=== PATIENT | female | born 2005 | race Hispanic/Latino ===

== ENCOUNTER 2024-01-19 18:35 | Observation (INO) | payer MEDICAID, SELFPAY ==
[2024-01-19] VITALS (21 sets, daily range): BP systolic 105–120; BP diastolic 53–75; PULSE 62–136; TEMP 37.1; O2SAT 92–100; BMI 23.8
--- NOTE | 2024-01-19 18:35 | PC.NURSE ---
Pt arrives to unit with abdominal pain.
--- NOTE | 2024-01-19 19:08 | OBADM ---
This patient, Kritsie Orozco, admitted to the OB room [facility] for observation. Patient/family oriented to hospital policies and general routines including ID bracelet, bed and alarms, visiting hours, pain management, procedures, bathroom and other care routines, personal items, smoking policy, room service/diet, and visiting hours. Patient/Family are encouraged to report perceived risks to care and to ask questions if they do not understand what they are told or what they should do.
[2024-01-19 19:53] LABS: Add Urine Microscopic? NO; Appearance Urine Clear (Clear); Bilirubin Urine Negative (Negative); Blood Urine Negative (Negative); Color Urine Yellow (Yellow); Glucose Urine UA Negative (Negative); Ketones Urine Negative (Negative); Leukocyte Esterase Ur Negative LEU/UL (Negative); Nitrate Urine Negative (Negative); Protein Urine Negative (Negative); Specific Grav Ur 1.011 (1.001-1.035); Urobilinogen Urine 0.2 mg/dL (<2.0); pH Urine 6.5 (5.0-9.0)
--- NOTE | 2024-01-19 20:17 | PC.NURSE ---
Called Dr. Zafar, update on pt, lower abdominal pain 5 out of 10, bleeding earlier today, labs, and tracing. Orders received to discharge pt with instructions to take Tylenol 1000 mg, hydrate, initiate pelvic rest, use a belly band, follow up with provider, and keep next scheduled appointment.
--- NOTE | 2024-01-19 20:38 | PC.NURSE ---
Pt discharged with instructions to take Tylenol 1000 mg, hydrate, initiate pelvic rest, use a belly band, follow up with provider, and keep next scheduled appointment, pt verbalizes understanding.
--- NOTE | 2024-01-20 09:08 | P.PNOB_ITS ---
OB - Triage/Final Diagnosis Visit Information Comments/Additional reasons for admission: I have assessed the risk for this patient, Kristie Orozco, and determined that she would benefit from observation care. Evaluation Laboratory results: Laboratory Tests 01/19/24 19:19 Urine Color Yellow Urine Appearance Clear Urine pH 6.5 Ur Specific [place] 1.011 Urine Protein Negative Urine Glucose (UA) Negative Urine Ketones Negative Ur Blood (Man) Negative Urine Nitrate Negative Urine Bilirubin Negative Urine Urobilinogen 0.2 Leukocyte Esterase Rfl Negative Vital signs: Vital Signs - 24 hr 01/19/24 19:02 01/19/24 19:07 01/19/24 19:09 Temperature Pulse Rate Blood Pressure Pulse Oximetry 100 100 100 Oxygen Delivery 01/19/24 19:13 01/19/24 19:16 01/19/24 19:20 Temperature Pulse Rate 71 Blood Pressure 105/53 L Pulse Oximetry 98 94 100 Oxygen Delivery 01/19/24 19:20 01/19/24 19:25 01/19/24 19:30 Temperature Pulse Rate 79 Blood Pressure 105/57 L Pulse Oximetry 100 94 100 Oxygen Delivery 01/19/24 19:35 01/19/24 19:40 01/19/24 19:43 Temperature Pulse Rate Blood Pressure Pulse Oximetry 100 100 100 Oxygen Delivery 01/19/24 19:48 01/19/24 19:51 01/19/24 19:56 Temperature Pulse Rate Blood Pressure Pulse Oximetry 100 100 100 Oxygen Delivery 01/19/24 20:00 01/19/24 20:00 01/19/24 20:00 Temperature Pulse Rate Blood Pressure Pulse Oximetry 100 96 92 Oxygen Delivery 01/19/24 20:00 01/19/24 20:00 01/19/24 20:05 Temperature Pulse Rate 87 Blood Pressure 120/75 Pulse Oximetry 93 Oxygen Delivery 01/19/24 20:05 01/19/24 20:10 01/19/24 20:12 Temperature Pulse Rate Blood Pressure Pulse Oximetry 95 100 97 Oxygen Delivery 01/19/24 20:15 01/19/24 20:20 01/19/24 20:23 Temperature 98.7 F Pulse Rate Blood Pressure Pulse Oximetry 100 100 Oxygen Delivery 01/19/24 19:06 01/19/24 19:13 Temperature Pulse Rate Blood Pressure Pulse Oximetry 98 Oxygen Delivery Room Air Final Diagnosis (1) Pelvic pain affecting : Code(s): O26.899 - Other specified related conditions, unspecified trimester; R10.2 - Pelvic and perineal pain Status: Acute
== END 2024-01-19 20:38 | disposition home or self-care (01) ==
PROVIDERS: Admitting Provider Obstetrics & Gynecology; Visit Provider Obstetrics & Gynecology
DX: O26.893 Other specified pregnancy related conditions, third trimester (principal); R10.2 Pelvic and perineal pain; Z3A.29 29 weeks gestation of pregnancy
CPT/HCPCS: 81003; G0378; G0379